=== PATIENT | female | born 1980 ===

== ENCOUNTER 2017-07-06 21:19 | Emergency (ER) | payer MEDICAID ==
[2017-07-06 21:32] VITALS: TEMP 99
--- NOTE | 2017-07-06 21:41 | ED PDOC ---
Arrival/HPI - General Chief Complaint: Psychiatric Evaluation Time Seen by Provider: 07/06/17 21:25 Historian: EMS EM Caveat: Intoxicated - History of Present Illness Time/Duration: Prior to Arrival Associated Symptoms (Text): 07/06/17 21:36 Patient presents to the emergency department via ambulance. She was picked up at a bar. She smells of alcohol and has alcohol on her clothes and a half empty bottle of liquor. She is lethargic but easily aroused. Panamanian-speaking and japanese interpreter required. Very poor historian secondary to intoxication. Unclear at this point if the patient will need crisis evaluation. Past Medical History - Psychiatric Hx Substance Use: (UTO) Family/Social History - Physician Review Nursing Documentation Reviewed: Yes Family/Social History: Unknown Family HX Smoking Status: UTO Hx Alcohol Use: (UTO) Hx Substance Use: (UTO) Allergies/Home Meds Allergies/Adverse Reactions: Allergies Unobtainable Allergy (Verified 07/06/17 21:32) Home Medications: Home Meds Medication Instructions Recorded Confirmed Unobtainable 07/06/17 07/06/17 Review of Systems - Review of Systems Systems not reviewed;Unavailable: Intoxicated Physical Exam Vital Signs Temp Pulse Resp BP Pulse Ox 07/07/17 05:00 76 16 114/76 99 07/07/17 03:00 99 H 16 116/74 100 07/07/17 01:00 102 H 16 119/77 99 07/06/17 23:50 103 H 18 147/73 99 07/06/17 21:25 99.0 F 105 H 18 142/94 H 100 Temperature: Afebrile Blood Pressure: Hypertensive Pulse: Tachycardic Respiratory Rate: Normal Appearance: Positive for: Well-Appearing, Non-Toxic, Comfortable Pain Distress: None Mental Status: Positive for: Lethargic, other (Lethargic but easily aroused) - Systems Exam Head: Present: Atraumatic, Normocephalic Pupils: Present: PERRL Extroacular Muscles: Present: EOMI Conjunctiva: Present: Normal Mouth: Present: Moist Mucous Membranes Pharnyx: No: ERYTHEMA, EXUDATE, TONSILS ENLARGED Respiratory/Chest: Present: Clear to Auscultation, Good Air Exchange, Decreased Breath Sounds. No: Respiratory Distress, Accessory Muscle Use Cardiovascular: Present: Regular Rate and Rhythm, Normal S1, S2. No: Murmurs Abdomen: Present: Normal Bowel Sounds. No: Tenderness, Distention, Peritoneal Signs Upper Extremity: Present: Normal Inspection. No: Cyanosis, Edema Lower Extremity: Present: Normal Inspection. No: Edema Neurological: Present: GCS=15, CN II-XII Intact, Motor Func Grossly Intact, Other (Unable to test sensation coordination gait and stance. Moves all extremities equally) Skin: Present: Warm, Dry, Normal Color. No: Rashes Medical Decision Making ED Course and Treatment: 07/06/17 21:52 EKG shows sinus tachycardia rate approximately [address] or T-wave changes 07/07/17 07:05 Patient is awake alert and oriented 3. She states that she came here visiting her cousin and was out drinking last night. She usually does not drink. She denies depression. No suicidal or homicidal ideation. No visual or auditory hallucinations. - Lab Interpretations Lab Results: 07/06/17 22:05 07/06/17 22:05 Lab Results 07/07/17 00:54: Urine Opiates Screen Negative, Urine Methadone Screen Negative, Ur Barbiturates Screen Negative, Ur Phencyclidine Scrn Negative, Ur Amphetamines Screen Negative, U Benzodiazepines Scrn Negative, U Oth Cocaine Metabols Negative, U Cannabinoids Screen Negative 07/07/17 00:54: Urine Color Light yellow, Urine Appearance Slight-cloudy, Urine pH 6.5, Ur Specific [place] <= 1.005, Urine Protein 100 H, Urine Glucose (UA) Negative, Urine Ketones Negative, Urine Blood Small H, Urine Nitrate Negative, Urine Bilirubin Negative, Urine Urobilinogen 0.2, Ur Leukocyte Esterase Negative , Urine RBC 1 - 3, Urine WBC 0 - 2, Ur Epithelial Cells 0 - 2, Urine Bacteria Mod, Urine HCG, Qual Negative 07/06/17 22:06: POC Glucose (mg/dL) 198 H 07/06/17 22:05: Alcohol, Quantitative 408 H* 07/06/17 22:05: Salicylates < 1 L, Acetaminophen < 10.0 L 07/06/17 22:05: Sodium 151 H, Potassium 3.4 L, Chloride 117 H, Carbon Dioxide 11 L, Anion Gap 26 H, BUN 16, Creatinine 1.2, Est GFR ( Amer) > 60, Est GFR (Non-Af Amer) 51, Random Glucose 198 H, Calcium 9.8, Total Bilirubin 0.2, AST 26, ALT 24, Alkaline Phosphatase 90, Total Creatine Kinase 463 H, CK-MB (CK- 2) 2.2, CK-MB (CK-2) % Cancelled, Total Protein 7.5, Albumin 4.1, Globulin 3.4, Albumin/Globulin Ratio 1.2 07/06/17 22:05: WBC 12.4 H, RBC 4.04, Hgb 11.6 L, Hct 34.7 L, MCV 85.9, MCH 28.7 , MCHC 33.4, RDW 15.3 H, Plt Count 193, MPV 10.2, Gran % 68.1 H, Lymph % (Auto) 23.6, [place] % (Auto) 7.9 H, Eos % (Auto) 0.2 L, Baso % (Auto) 0.2, Gran # 8.48 H , Lymph # 2.9, Bradford # 1.0 H, Eos # 0.0, Baso # 0.02 Disposition/Present on Arrival - Present on Arrival Any Indicators Present on Arrival: No History of DVT/PE: No History of Uncontrolled Diabetes: No Urinary Catheter: No History of Decub. Ulcer: No History Surgical Site Infection Following: None - Disposition Have Diagnosis and Disposition been Completed?: Yes Diagnosis: Alcohol intoxication Disposition: HOME/ ROUTINE Disposition Time: 07:06 Patient Plan: Discharge Condition: IMPROVED Discharge Instructions (ExitCare): Alcohol Intoxication (ED) Forms: [employer] (Jamaican)
[2017-07-06 22:35] LABS: ALB/GLOB RATIO 1.2 (1.1-1.8); ALKALINE PHOSPHATASE 90 U/L (38-126); ALT/SGPT 24 U/L (7-56); AST/SGOT 26 U/L (14-36); BILIRUBIN,TOTAL 0.2 mg/dL (0.2-1.3); BLOOD UREA NITROGEN 16 mg/dL (7-21); CALCIUM 9.8 mg/dL (8.4-10.5); CARBON DIOXIDE 11 mmol/L (21-33); CHLORIDE 117 mmol/L (98-107); GFR AFRICAN-AMERICAN > 60; GLUCOSE,RANDOM 198 mg/dL (70-110); POTASSIUM 3.4 mmol/L (3.6-5.0); SODIUM 151 mmol/L (132-148); TOTAL PROTEIN 7.5 g/dL (5.8-8.3)
[2017-07-06 23:00] LABS: BASO # 0.02 K/mm3 (0.0-2.0); BASO % 0.2 % (0.0-3.0); EOS % 0.2 % (1.5-5.0); GRAN # 8.48 (1.4-6.5); GRAN % 68.1 % (50.0-68.0); HEMATOCRIT 34.7 % (36.0-48.0); LYMPH # 2.9 (1.2-3.4); LYMPH % 23.6 % (22.0-35.0); MEAN CELL VOLUME 85.9 fl (80.0-105.0); MEAN CORPUSCULAR HEMOGLOBIN 28.7 pg (25.0-35.0); MEAN CORPUSCULAR HGB CONC 33.4 g/dl (31.0-37.0); MEAN PLATELET VOLUME 10.2 fl (7.0-11.0); MONO % 7.9 % (1.0-6.0); RED CELL DISTRIBUTION WIDTH 15.3 % (11.5-14.5); WHITE BLOOD COUNT 12.4 10^3/ul (4.5-11.0)
[2017-07-07 00:59] LABS: PH,URINE 6.5 (4.7-8.0); URINE BILIRUBIN NEGATIVE (NEGATIVE); URINE BLOOD SMALL (NEGATIVE); URINE GLUCOSE (UA) NEGATIVE (NEGATIVE); URINE KETONE NEGATIVE (NEGATIVE); URINE LEUKOCYTE ESTERASE NEGATIVE Leu/uL (NEGATIVE); URINE PROTEIN 100 mg/dL (<30 mg/dL); URINE UROBILINOGEN 0.2 E.U./dL (<1 E.U./dL)
[2017-07-07 01:03] LABS: URINE APPEARANCE SLIGHT-CLOUDY (CLEAR); URINE COLOR LIGHT YELLOW (YELLOW)
[2017-07-07 01:07] LABS: URINE BACTERIA MOD (NEG); URINE EPITHELIAL CELLS 0 - 2 /hpf (0-5); URINE WBC 0 - 2 /hpf (0-6)
[2017-07-07 03:17] VITALS: RESP 16
[2017-07-07 06:32] VITALS: O2SAT 99
[2017-07-07 07:14] VITALS: BP 124/86; PULSE 80
--- NOTE | 2017-07-07 08:56 | CARD ---
APPROVED REPORT EKG Measurement Heart [id number] <Conclusion> Sinus tachycardia Possible Left atrial enlargement Borderline ECG
== END 2017-07-07 07:19 | disposition home or self-care (01) ==
LOC: MERGE 21:19 → ED 21:19
DX: F10.129 Alcohol abuse with intoxication, unspecified (principal); Y90.8 Blood alcohol level of 240 mg/100 ml or more